=== PATIENT | female | born 1995 ===

== ENCOUNTER 2016-07-30 14:26 | Outpatient (CLI) | payer OTHER | END 2016-07-30 14:27 | LOC: LAB 14:26 | PROVIDERS: ATTEND Family Medicine | DX: R10.84 Generalized abdominal pain (principal) | CPT/HCPCS: 36415; 82784; 83516 ==

== ENCOUNTER 2017-05-22 14:15 | Outpatient (CLI) | payer OTHER | END 2017-05-22 14:20 | LOC: LABRHC 14:15 | PROVIDERS: ATTEND Physician Assistant | DX: Z12.4 Encounter for screening for malignant neoplasm of cervix (principal) | CPT/HCPCS: 88148; G0143 ==

== ENCOUNTER 2017-11-18 14:34 | Outpatient (CLI) | payer OTHER | END 2017-11-18 14:36 | LOC: LABRHC 14:34 | PROVIDERS: ATTEND Physician Assistant | DX: R30.0 Dysuria (principal) | CPT/HCPCS: 87086 ==